=== PATIENT | female | born 2005 | race Caucasian/White ===

== ENCOUNTER 2023-07-21 10:56 | Outpatient (RCR) | payer OTHER, SELFPAY | END 2023-11-18 23:59 | disposition home or self-care (01) | PROVIDERS: Visit Provider Family Medicine | DX: M24.80 Other specific joint derangements of unspecified joint, not elsewhere classified (principal); M25.571 Pain in right ankle and joints of right foot; M25.59 Pain in other specified joint; G89.29 Other chronic pain; R53.1 Weakness; Z51.89 Encounter for other specified aftercare | CPT/HCPCS: 97110; 97163 ==

== ENCOUNTER 2023-09-04 14:13 | Emergency (ER) | payer OTHER, SELFPAY ==
[2023-09-04 14:19] VITALS: BP 138/82; PULSE 112; RESP 20; TEMP 36.8; O2SAT 99; BMI 23.6
--- NOTE | 2023-09-04 14:40 | US_ITS ---
Final Report Patient: LINH LING Facility:?[facility] Patient ID:?[id number] Site Patient ID:?[id number]. Site :?[id number] Study:?US Extremity Right LEV-09/04/2023 3:12:49 PM Ordering Physician:?NURSE Final Report: INDICATION: Right calf pain TECHNIQUE: Ultrasound venous duplex lower right extremity. Compression venous exam was performed using brambila-scale, color Doppler, and spectral Doppler imaging. COMPARISON: None. FINDINGS: Sonographic imaging demonstrates the right common femoral, deep femoral, superficial femoral, popliteal, posterior tibial and greater saphenous and the contralateral left common femoral veins to be fully compressible with normal color Doppler blood flow. IMPRESSION: Normal right lower extremity venous ultrasound, no sign of deep venous thrombosis. Dictated by Kirk Cardoso MD @ 09/04/2023 3:42:40 PM (Electronic Signature)
--- NOTE | 2023-09-04 15:53 | ED_ITS ---
HPI - General Adult General Time Seen by Provider: 15:54 Date Seen: 09/04/23 Chief complaint: Extremity Pain/Injury, Lower Stated complaint: Calf pain, blood clot Time Seen by Provider: 09/04/23 15:52 Source: patient Mode of arrival: ambulatory Limitations: no limitations History of Present Illness HPI narrative: Female who comes in today with 2 days of right calf pain. Pain is worse with walking, minimal when she is standing still. No chest pain or shortness of breath. Says the pain started after she was forcefully plantar flexing the foot Related Data Home Medications Medication Instructions Recorded Confirmed dextroamphetamine-amphetamine 10 1 tab PO DAILY 09/04/23 09/04/23 mg tablet dextroamphetamine-amphetamine ER 1 cap PO DAILY 09/04/23 09/04/23 15 mg 24hr capsule,extend release fluoxetine 20 mg capsule mg PO 09/04/23 fluoxetine 40 mg capsule mg PO 09/04/23 midodrine 5 mg tablet 5 mg PO TID 09/04/23 09/04/23 norgestrel 0.3 mg-ethinyl 1 tab PO DAILY 09/04/23 09/04/23 estradiol 30 mcg tablet (Shawn (28)) Allergies Allergy/AdvReac Type Severity Reaction Status Date / Time No Known Drug Allergies Allergy Verified 09/04/23 14:25 PFSH PFSH Social History Smoking Status: Never smoker How often do you have a drink containing alcohol: never AUDIT-C Alcohol total score: 0 Non-prescribed substance use: denies use Exam Narrative: Exam Narrative: General: well nourished , NAD Head: Atraumatic and normocephalic ENT: External ears and external nose are normal Eyes: Conjunctiva clear, pupils are equal reactive, external ocular motions are intact Neck: Full spontaneous range of motion of the neck Lungs: No respiratory distress Musculoskeletal: Diffuse tenderness of the right calf, particularly at the musculotendinous junction Neurologic: No gross focal neurologic deficits Skin: No rashes Psych: Mood and affect are appropriate Const: Vital Signs, click to edit/add: Vital Signs - 24 hr 09/04/23 14:19 Temperature 98.3 F Pulse Rate [Pulse Oximeter] 112 H Respiratory Rate 20 Blood Pressure [Ri ght Upper Arm] 138/82 Pulse Oximetry 99 Oxygen Delivery Me thod Room Air Course Course ED Course: Patient seen examined, prior records are reviewed. Ultrasound ordered and performed prior to my evaluation of the patient does not demonstrate any DVT. Patient has diffuse tenderness of the right calf and pain with walking and ankle plantar flexion. Symptoms are most consistent with musculoskeletal pain. Recommend symptomatic treatment, consider physical therapy if symptoms do not improve in 7-10 days. Vital Signs Vital signs: Initial Vital Signs Temperature 98.3 F 09/04/23 14:19 Temperature Source Temporal Artery Scan 09/04/23 14:19 Pulse Rate 112 H 09/04/23 14:19 Pulse Rhythm Regular 09/04/23 14:19 Pulse Strength 3+ Normal 09/04/23 14:19 Respiratory Rate 20 09/04/23 14:19 Blood Pressure 138/82 09/04/23 14:19 Blood Pressure Mean 100 09/04/23 14:19 Blood Pressure Position Standing 09/04/23 14:19 Pulse Oximetry 99 09/04/23 14:19 Oxygen Delivery Method Room Air 09/04/23 14:19 Vital Signs Temperature 98.3 F 09/04/23 14:19 Pulse Rate 112 H 09/04/23 14:19 Respiratory Rate 20 09/04/23 14:19 Blood Pressure 138/82 09/04/23 14:19 Pulse Oximetry 99 09/04/23 14:19 Oxygen Delivery Method Room Air 09/04/23 14:19 Temperature 98.3 F 09/04/23 14:19 Pulse Rate 112 H 09/04/23 14:19 Respiratory Rate 20 09/04/23 14:19 Blood Pressure 138/82 09/04/23 14:19 Pulse Oximetry 99 09/04/23 14:19 Oxygen Delivery Method Room Air 09/04/23 14:19 Discharge Plan Discharge Clinical Impression: Strain of right calf muscle Patient Disposition: Home, Self-Care Condition: Stable Instructions: Muscle Strain (DC) Additional Instructions: Take Tylenol and ibuprofen as needed for pain Ice or warm packs for comfort Follow-up with primary care in 1 week if not better to consider physical therapy Activity Level: Activity as Tolerated Discharge Diet: Regular Prescriptions: No Action fluoxetine 40 mg capsule PO Shawn (28) 0.3-30 mg-mcg tablet 1 tab PO DAILY dextroamphetamine-amphetamine 10 mg tablet 1 tab PO DAILY fluoxetine 20 mg capsule PO dextroamphetamine-amphetamine 15 mg capsule,extended release 24hr 1 cap PO DAILY midodrine 5 mg tablet 5 mg PO TID Rx Instructions: do not give last dose of day after 6PM or within 4 hrs of bedtime Follow Up/Referrals: Provider,Not a Local [Primary Care Provider] - Stand Alone Forms: [facility] Info Instructions
== END 2023-09-04 16:14 | disposition home or self-care (01) ==
PROVIDERS: Emergency Provider Family Medicine; PCP Family Medicine
DX: S86.111A Strain of other muscle(s) and tendon(s) of posterior muscle group at lower leg level, right leg, initial encounter (principal)
CPT/HCPCS: 93971; 99283; 99284